=== PATIENT | female | born 1990 | race African-American/Black ===

== ENCOUNTER 2020-07-26 13:39 | Outpatient (CLI) | payer OTHER, SELFPAY ==
--- NOTE | ~2020-07-26 | US_ITS ---
EXAMINATION: US OB <= 14 weeks fetus DATE: 07/26/2020 14:10 INDICATION: Maternal carrier for viable fetus in abdominal . First trimester. TECHNIQUE: Real-time transabdominal pelvic ultrasound was performed. COMPARISON: None. FINDINGS: The uterus measures 8.6 x 6.0 x 4.1 cm. There is an intrauterine gestational sac. A yolk sac is ident ified. The crown rump length measures 7 mm, which correlates with an estimated gestational age of 6 weeks and 4 day(s) (+/-) 4 day(s). heart motion is identified measuring 141 beats per min havasupai (bpm) by M-mode Doppler. The right ovary measures 3.4 x 2.5 x 2.2 cm. The left ovary measures 4.3 x 2.3 x 2.8 cm. There is no free fluid in the pelvis. IMPRESSION: 1. Single living intrauterine gestation with estimated date of delivery of 03/17/2021. Reviewed, dictated and finalized at location B. PENDENT CONTRACTOR IMPRESSION: 1. Single living intrauterine gestation with estimated date of delivery of 03/17.
== END 2020-07-26 13:40 | disposition home or self-care (01) ==
LOC: ANHIMG 13:43
PROVIDERS: PCP Physician Assistant; Visit Provider Obstetrics & Gynecology
DX: O36.70X0 Maternal care for viable fetus in abdominal pregnancy, unspecified trimester, not applicable or unspecified (principal); Z3A.00 Weeks of gestation of pregnancy not specified
CPT/HCPCS: 76801

== ENCOUNTER 2020-12-20 16:11 | Outpatient (CLI) | payer OTHER, SELFPAY ==
[2020-12-20 16:41] LABS: Total Volume 24 Hour Urine 1550 ml
[2020-12-20 17:18] LABS: Creatinine 24 Hour Urine 1.3 gm/24 (0.8-1.8)
[2020-12-23 13:56] LABS: Total Protein Urine Random 17 mg/dL
[2020-12-23 14:09] LABS: Total Protein Urine 24 Hr 263 MG/DAY (28-141); Total Volume 24 Hour Urine 1550 ml
== END 2020-12-20 16:12 | disposition home or self-care (01) ==
PROVIDERS: PCP Physician Assistant; Visit Provider Student in an Organized Health Care Education/Training Program
DX: O13.9 Gestational [pregnancy-induced] hypertension without significant proteinuria, unspecified trimester (principal); Z3A.00 Weeks of gestation of pregnancy not specified
CPT/HCPCS: 81050; 82570; 84156

== ENCOUNTER 2020-12-23 13:54 | Outpatient (CLI) | payer OTHER, SELFPAY ==
--- NOTE | 2020-12-23 13:58 | ECG_ITS ---
Measurements Intervals [place] Rate: 100 P: 10 AR: 116 QRS: 29 QRSD: 81 T: 16 QT: 324 QTc: 418 Interpretive Statements SINUS TACHYCARDIA WITH SHORT AR INTERVAL BORDERLINE ECG Electronically Signed On 12-23-2020 14:19:55 CDT by Hemant Alvarado D.O.
--- NOTE | 2020-12-28 16:25 | WPDHOLTEREM ---
Holter/Event Monitor Holter/Event Monitor Date of procedure: 12/23/20 Procedure Type: 24 hour holter monitor Indications: Tachycardia Conclusion: 1. 24 hour holter monitor on 12/23/20. 2. Underlying rhythm is sinus rhythm. HR range 62-158 bpm; average HR 96 bpm. HR at 158 bpm was at 21:03. 3. There are 3 premature supraventricular complexes. No supraventricular tachycardia. 4. There is one premature ventricular complex. No ventricular tachycardia. 5. No sinoatrial or atrioventricular blocks. No significant pauses greater than 2 seconds. 6. No symptoms available for correlation.
== END 2020-12-23 13:55 | disposition home or self-care (01) ==
LOC: ANHCARD 13:57
PROVIDERS: PCP Physician Assistant; Visit Provider Obstetrics & Gynecology
DX: O99.43 Diseases of the circulatory system complicating the puerperium (principal); Z3A.28 28 weeks gestation of pregnancy
CPT/HCPCS: 93005; 93225; 93226

== ENCOUNTER 2020-12-29 13:14 | Outpatient (CLI) | payer OTHER, SELFPAY ==
--- NOTE | ~2020-12-29 | US_ITS ---
EXAMINATION: US OB limited DATE: 12/29/2020 14:34 INDICATION: Hypertension during third trimester TECHNIQUE: Real-time ultrasound of the pelvis was performed. The interpreting radiologist was not pre sent for the study. COMPARISON: 07/26/2020 FINDINGS: There is a single living fetus in vertex presentation. The placenta is anterior. card iac activity and movement are noted. heart rate is 145 beats per minute (bpm). The amniot ic fluid index is 13.1 cm which is normal. IMPRESSION: 1. Single living fetus in vertex presentation. 2. Normal amniotic fluid index. Reviewed, dictated and finalized at location B.
[2020-12-29 13:55] VITALS: BP 132/85; PULSE 94
[2020-12-29 14:01] VITALS: BP 138/89; PULSE 98
[2020-12-29 14:01] LABS: Basophils Percent Auto 0.2 % (0.2-1.2); Eosinophils Absolute Auto 0.1 K/mm3 (0-0.3); Eosinophils Percent Auto 1.1 % (0-4.4); Hematocrit 33.9 % (37.0-47.0); Hemoglobin 11.4 g/dL (12.0-15.0); Immature Granulocyte Absolute 0.07 K/mm3 (0.00-0.031); Immature Granulocyte Percent A 0.7 % (0-0.5); Lymphocytes Absolute Auto 2.44 K/mm3 (0.9-3.2); Lymphocytes Percent Auto 23.4 % (18.3-44.2); Mean Corpuscular HGB Conc 33.6 g/dl (32-36); Mean Corpuscular Hemoglobin 29.3 pg (26-34); Mean Corpuscular Volume 87.1 fl (80-100); Mean Platelet Volume 8.7 fl (7.4-10.4); Monocytes Absolute Auto 0.6 K/mm3 (0.1-0.6); Monocytes Percent Auto 5.7 % (2.6-8.5); Neutrophils Absolute Auto 7.2 K/mm3 (1.3-6.7); Neutrophils Percent Auto 68.9 % (45.5-73.1); Platelet Count Result 389 k/mm3 (150-375); Red Blood Count 3.89 M/mm3 (4.2-5.4); Red Cell Distribution Width 12.4 % (11.5-14.5); White Blood Count 10.4 K/mm3 (4.5-10.0)
[2020-12-29 14:04] LABS: Add Urine Microscopic? YES; Appearance Urine Cloudy (Clear); Bacteria Urine Trace /hpf; Bilirubin Urine Negative (Negative); Blood Urine Negative (Negative); Color Urine Yellow (Yellow); Glucose Urine UA Negative (Negative); Ketones Urine Negative (Negative); Leukocyte Esterase Ur Trace LEU/UL (NEGATIVE); Mucus Urine Rare /lpf; Nitrate Urine Negative (Negative); Protein Urine 1+ mg/dL (Negative); Specific Grav Ur 1.018 (1.001-1.035); Squamous Epithelial Cell Urine Few /hpf (Few); WBC Urine 0-3 /hpf (0-3)
[2020-12-29 14:18] LABS: Alanine Aminotransferase 16 U/L (4-35); Albumin Level 3.7 g/dL (3.5-5.1); Alkaline Phosphatase 61 U/L (38-126); Anion Gap 6 mmol/L (8-16); Aspartate Amino Transferase 26 U/L (14-36); Bilirubin,Total 0.2 mg/dL (0.2-1.3); Blood Urea Nitrogen 3 mg/dL (7-17); Calcium 8.9 mg/dL (8.4-10.2); Carbon Dioxide 27 mmol/L (22-30); Chloride 104 mmol/L (98-107); Estimated Glomerular Filt Rate > 60; Glucose 102 mg/dL (65-105); Potassium 3.8 mmol/L (3.4-5.0); Sodium 137 mmol/L (137-145); Uric Acid 4.3 mg/dL (2.5-7.5)
[2020-12-29 14:22] LABS: Creatinine Urine 159.1 mg/dL; Total Protein Urine Random 10 mg/dL; Ur Ttl Prot Creatinine Ratio 0.06 mg/mg (0-0.20)
[2020-12-29 14:47] VITALS: BP 132/85; PULSE 94
== END 2020-12-29 14:30 | disposition home or self-care (01) ==
LOC: ANHOBOP 13:21 → ANHLDR 13:23
PROVIDERS: PCP Physician Assistant; Visit Provider Obstetrics & Gynecology
DX: O13.3 Gestational [pregnancy-induced] hypertension without significant proteinuria, third trimester (principal); Z3A.30 30 weeks gestation of pregnancy
CPT/HCPCS: 36415; 59025; 76815; 80053; 81001; 82570; 84156; 84550; 85025; 87086; 99199

== ENCOUNTER 2021-01-06 13:08 | Outpatient (CLI) | payer OTHER, SELFPAY ==
[2021-01-06 13:42] VITALS: BP 149/95; PULSE 105
[2021-01-06 13:53] LABS: Basophils Percent Auto 0.2 % (0.2-1.2); Eosinophils Absolute Auto 0.1 K/mm3 (0-0.3); Eosinophils Percent Auto 0.9 % (0-4.4); Hematocrit 33.2 % (37.0-47.0); Hemoglobin 10.9 g/dL (12.0-15.0); Immature Granulocyte Absolute 0.04 K/mm3 (0.00-0.031); Immature Granulocyte Percent A 0.5 % (0-0.5); Lymphocytes Absolute Auto 2.03 K/mm3 (0.9-3.2); Lymphocytes Percent Auto 23.9 % (18.3-44.2); Mean Corpuscular HGB Conc 32.8 g/dl (32-36); Mean Corpuscular Hemoglobin 28.8 pg (26-34); Mean Corpuscular Volume 87.6 fl (80-100); Mean Platelet Volume 8.7 fl (7.4-10.4); Monocytes Absolute Auto 0.4 K/mm3 (0.1-0.6); Monocytes Percent Auto 4.8 % (2.6-8.5); Neutrophils Absolute Auto 5.9 K/mm3 (1.3-6.7); Neutrophils Percent Auto 69.7 % (45.5-73.1); Platelet Count Result 364 k/mm3 (150-375); Red Blood Count 3.79 M/mm3 (4.2-5.4); Red Cell Distribution Width 12.3 % (11.5-14.5); White Blood Count 8.5 K/mm3 (4.5-10.0)
[2021-01-06 13:59] LABS: Alanine Aminotransferase 18 U/L (4-35); Albumin Level 3.5 g/dL (3.5-5.1); Alkaline Phosphatase 62 U/L (38-126); Anion Gap 5 mmol/L (8-16); Aspartate Amino Transferase 36 U/L (14-36); Bilirubin,Total 0.3 mg/dL (0.2-1.3); Blood Urea Nitrogen 3 mg/dL (7-17); Calcium 8.3 mg/dL (8.4-10.2); Carbon Dioxide 27 mmol/L (22-30); Chloride 105 mmol/L (98-107); Estimated Glomerular Filt Rate > 60; Glucose 123 mg/dL (65-105); Potassium 3.5 mmol/L (3.4-5.0); Sodium 137 mmol/L (137-145); Uric Acid 4.8 mg/dL (2.5-7.5)
[2021-01-06 14:00] VITALS: BP 145/82; PULSE 97
[2021-01-06 14:15] VITALS: BP 144/89; PULSE 99
[2021-01-06 14:30] VITALS: BP 130/71; PULSE 98
[2021-01-06 14:37] LABS: Add Urine Microscopic? YES; Amorphous Sediment Urine Few; Appearance Urine Cloudy (Clear); Bacteria Urine Trace /hpf; Bilirubin Urine Negative (Negative); Blood Urine Negative (Negative); Color Urine Yellow (Yellow); Glucose Urine UA 1+ mg/dL (Negative); Ketones Urine 1+ mg/dL (Negative); Leukocyte Esterase Ur Trace LEU/UL (NEGATIVE); Mucus Urine Few /lpf; Nitrate Urine Negative (Negative); Protein Urine 2+ mg/dL (Negative); Squamous Epithelial Cell Urine Moderate /hpf (Few); Urobilinogen Urine Negative mg/dL (<2.0)
[2021-01-06 14:45] VITALS: BP 132/78; PULSE 97
[2021-01-06 14:53] LABS: Creatinine Urine 229.5 mg/dL; Total Protein Urine Random 15 mg/dL; Ur Ttl Prot Creatinine Ratio 0.07 mg/mg (0-0.20)
[2021-01-06 15:00] VITALS: BP 134/83; PULSE 95
== END 2021-01-06 15:10 | disposition home or self-care (01) ==
LOC: ANHOBOP 13:12 → ANHOBPP 13:13
PROVIDERS: PCP Physician Assistant; Visit Provider Obstetrics & Gynecology
DX: O13.9 Gestational [pregnancy-induced] hypertension without significant proteinuria, unspecified trimester (principal); Z3A.00 Weeks of gestation of pregnancy not specified
CPT/HCPCS: 36415; 59025; 80053; 81001; 82570; 84156; 84550; 85025; 87086; 99199

== ENCOUNTER 2021-01-07 19:00 | Outpatient (NON) | payer OTHER, SELFPAY ==
[2021-01-08 16:23] VITALS: BMI 34.0
[2021-01-08 16:34] LABS: Total Volume 24 Hour Urine 2200 ml
[2021-01-08 16:40] LABS: Total Protein Urine 24 Hr 264 mg/24hr (28-141); Total Protein Urine Random 12 mg/dL
[2021-01-08 16:41] LABS: Creatinine 24 Hour Urine 1.5 gm/24 (0.8-1.8); Creatinine Urine 72.1 mg/dL
== END 2021-01-07 19:01 | disposition home or self-care (01) ==
PROVIDERS: PCP Physician Assistant; Visit Provider Obstetrics & Gynecology
DX: Z34.90 Encounter for supervision of normal pregnancy, unspecified, unspecified trimester (principal); Z3A.00 Weeks of gestation of pregnancy not specified
CPT/HCPCS: 81050; 82570; 84156

== ENCOUNTER 2021-01-13 12:10 | Outpatient (CLI) | payer OTHER, SELFPAY ==
[2021-01-13] VITALS (7 sets, daily range): BP systolic 128–149; BP diastolic 76–92; PULSE 88–96
--- NOTE | ~2021-01-13 | US_ITS ---
US OB limited 01/13/2021 13:32 Indication: Hypertension Procedure: Real-time Limited obstetrical ultrasound using transabdominal technique Comparison: 12/29/2020 Findings: There is a single living intrauterine in vertex presentation. Placenta is anterio r without previa. Amniotic fluid index is normal measuring 11 cm, (normal range for gestational age i s 8.6-24.2 cm). heart rate is 136 BPM. Impression: 1: Single living intrauterine in vertex presentation. 2: Normal DAVE measures 11 cm. Reviewed, dictated and finalized at location B. Impression: 1: Single living intrauterine in vertex presentation. 2: Normal DAVE measures 11 cm.
[2021-01-13 12:47] LABS: Basophils Percent Auto 0.3 % (0.2-1.2); Eosinophils Absolute Auto 0.1 K/mm3 (0-0.3); Hemoglobin 10.8 g/dL (12.0-15.0); Immature Granulocyte Absolute 0.07 K/mm3 (0.00-0.031); Immature Granulocyte Percent A 0.8 % (0-0.5); Lymphocytes Absolute Auto 1.95 K/mm3 (0.9-3.2); Lymphocytes Percent Auto 22.3 % (18.3-44.2); Mean Corpuscular HGB Conc 33.8 g/dl (32-36); Mean Corpuscular Hemoglobin 29.3 pg (26-34); Mean Corpuscular Volume 86.7 fl (80-100); Mean Platelet Volume 8.6 fl (7.4-10.4); Monocytes Absolute Auto 0.5 K/mm3 (0.1-0.6); Monocytes Percent Auto 6.1 % (2.6-8.5); Neutrophils Absolute Auto 6.1 K/mm3 (1.3-6.7); Neutrophils Percent Auto 69.5 % (45.5-73.1); Platelet Count Result 312 k/mm3 (150-375); Red Blood Count 3.69 M/mm3 (4.2-5.4); Red Cell Distribution Width 12.4 % (11.5-14.5); White Blood Count 8.7 K/mm3 (4.5-10.0)
[2021-01-13 12:51] LABS: Add Urine Microscopic? YES; Appearance Urine Cloudy (Clear); Bacteria Urine Trace /hpf; Bilirubin Urine Negative (Negative); Blood Urine Negative (Negative); Color Urine Yellow (Yellow); Glucose Urine UA Negative (Negative); Ketones Urine 1+ mg/dL (Negative); Leukocyte Esterase Ur 1+ LEU/UL (NEGATIVE); Mucus Urine Rare /lpf; Nitrate Urine Negative (Negative); Protein Urine 1+ mg/dL (Negative); Specific Grav Ur 1.014 (1.001-1.035); Squamous Epithelial Cell Urine Few /hpf (Few); Urobilinogen Urine Negative mg/dL (<2.0)
[2021-01-13 12:55] LABS: Creatinine Urine 125.2 mg/dL; Total Protein Urine Random 15 mg/dL; Ur Ttl Prot Creatinine Ratio 0.12 mg/mg (0-0.20)
[2021-01-13 12:58] LABS: Alanine Aminotransferase 14 U/L (4-35); Albumin Level 3.6 g/dL (3.5-5.1); Alkaline Phosphatase 66 U/L (38-126); Anion Gap 6 mmol/L (8-16); Aspartate Amino Transferase 24 U/L (14-36); Bilirubin,Total 0.2 mg/dL (0.2-1.3); Blood Urea Nitrogen 3 mg/dL (7-17); Calcium 8.7 mg/dL (8.4-10.2); Carbon Dioxide 26 mmol/L (22-30); Chloride 104 mmol/L (98-107); Estimated Glomerular Filt Rate > 60; Glucose 110 mg/dL (65-105); Potassium 3.6 mmol/L (3.4-5.0); Sodium 136 mmol/L (137-145); Uric Acid 4.7 mg/dL (2.5-7.5)
== END 2021-01-13 14:15 | disposition home or self-care (01) ==
LOC: ANHOBOP 12:16 → ANHOBPP 12:16
PROVIDERS: PCP Physician Assistant; Visit Provider Obstetrics & Gynecology
DX: O13.9 Gestational [pregnancy-induced] hypertension without significant proteinuria, unspecified trimester (principal); Z3A.00 Weeks of gestation of pregnancy not specified
CPT/HCPCS: 36415; 59025; 76815; 80053; 81001; 82570; 84156; 84550; 85025; 87086; 99199

== ENCOUNTER 2021-01-24 14:29 | Outpatient (CLI) | payer OTHER, SELFPAY ==
[2021-01-24] VITALS (25 sets, daily range): BP systolic 130–163; BP diastolic 74–102; PULSE 91–109; BMI 34.9
[2021-01-24] MEDS: BETAMETHASONE SOD PHOS/ACETATE 30 MG/5 ML VIAL 12 MG IM (15:19)
[2021-01-24 15:22] LABS: Basophils Percent Auto 0.2 % (0.2-1.2); Eosinophils Absolute Auto 0.1 K/mm3 (0-0.3); Eosinophils Percent Auto 1.1 % (0-4.4); Hematocrit 31.1 % (37.0-47.0); Hemoglobin 10.3 g/dL (12.0-15.0); Immature Granulocyte Absolute 0.09 K/mm3 (0.00-0.031); Immature Granulocyte Percent A 0.9 % (0-0.5); Lymphocytes Absolute Auto 2.16 K/mm3 (0.9-3.2); Lymphocytes Percent Auto 21.3 % (18.3-44.2); Mean Corpuscular HGB Conc 33.1 g/dl (32-36); Mean Corpuscular Hemoglobin 28.5 pg (26-34); Mean Corpuscular Volume 86.1 fl (80-100); Mean Platelet Volume 8.8 fl (7.4-10.4); Monocytes Absolute Auto 0.7 K/mm3 (0.1-0.6); Neutrophils Absolute Auto 7.1 K/mm3 (1.3-6.7); Neutrophils Percent Auto 69.5 % (45.5-73.1); Nucleated Red Blood Cells Perc 0.2 % (0.0-0.2); Platelet Count Result 333 k/mm3 (150-375); Red Blood Count 3.61 M/mm3 (4.2-5.4); Red Cell Distribution Width 12.5 % (11.5-14.5); White Blood Count 10.1 K/mm3 (4.5-10.0)
[2021-01-24 15:32] LABS: Alanine Aminotransferase 13 U/L (4-35); Albumin Level 3.5 g/dL (3.5-5.1); Alkaline Phosphatase 66 U/L (38-126); Anion Gap 5 mmol/L (8-16); Aspartate Amino Transferase 24 U/L (14-36); Bilirubin,Total 0.2 mg/dL (0.2-1.3); Carbon Dioxide 25 mmol/L (22-30); Chloride 104 mmol/L (98-107); Estimated Glomerular Filt Rate > 60; Glucose 102 mg/dL (65-105); Potassium 3.5 mmol/L (3.4-5.0); Sodium 134 mmol/L (137-145); Uric Acid 4.9 mg/dL (2.5-7.5)
[2021-01-24 15:58] LABS: Add Urine Microscopic? YES; Appearance Urine Cloudy (Clear); Bacteria Urine Trace /hpf; Bilirubin Urine Negative (Negative); Blood Urine Negative (Negative); Color Urine Yellow (Yellow); Glucose Urine UA Negative (Negative); Ketones Urine Negative (Negative); Leukocyte Esterase Ur 1+ LEU/UL (NEGATIVE); Mucus Urine Rare /lpf; Nitrate Urine Negative (Negative); Protein Urine 1+ mg/dL (Negative); Specific Grav Ur 1.019 (1.001-1.035); Squamous Epithelial Cell Urine Few /hpf (Few); Urobilinogen Urine Negative mg/dL (<2.0)
[2021-01-24 15:58] LABS: Blood Urea Nitrogen < 2 mg/dL (7-17)
--- NOTE | 2021-01-24 15:59 | PC.NURSE ---
1555--Dr. Barnett on unit, reviewed labs and BP's. Orders received for procardia 30mg XL po Q24hrs.
[2021-01-24] MEDS: NIFEdipine 30 MG TAB.ER.24 PO (16:10)
[2021-01-24 16:34] LABS: Creatinine Urine 162.4 mg/dL; Total Protein Urine Random 14 mg/dL; Ur Ttl Prot Creatinine Ratio 0.09 mg/mg (0-0.20)
--- NOTE | 2021-01-24 20:02 | LDADM ---
This patient, Fabrice Burns, was admitted to OB Post 117 on at 14:29. Plans for labor, pain management and were discussed with patient. Patient/family oriented to hospital policies and general routines including ID bracelet, bed and alarms, visiting hours, pain management, procedures, bathroom and other care routines, personal items, smoking policy, room service/diet and guest tray routines, security routines, and visiting hours. Patient/Family are encouraged to report perceived risks to care and to ask questions if they do not understand what they are told or what they should do. See OBIX for further documentation.
== END 2021-01-24 20:24 | disposition home or self-care (01) ==
LOC: ANHOBOP 14:53 → ANHOBPP 14:54
PROVIDERS: PCP Physician Assistant; Visit Provider Obstetrics & Gynecology
DX: O13.9 Gestational [pregnancy-induced] hypertension without significant proteinuria, unspecified trimester (principal); Z3A.00 Weeks of gestation of pregnancy not specified
CPT/HCPCS: 36415; 80053; 81001; 82570; 84156; 84550; 85025; 87077; 87086; 87088; 96372; 99199; A9270; J0702

== ENCOUNTER 2021-01-25 16:44 | Outpatient (CLI) | payer OTHER, SELFPAY ==
[2021-01-25 16:51] VITALS: BMI 34.9
[2021-01-25] MEDS: BETAMETHASONE SOD PHOS/ACETATE 30 MG/5 ML VIAL 12 MG IM (16:54)
[2021-01-25 18:05] LABS: Collection Time Urine 24 HOURS; Total Volume 24 Hour Urine 4000 ml
[2021-01-25 18:06] LABS: Patient Weight 197 Lbs
[2021-01-25 18:41] LABS: Specific Gravity Ur 1.015
[2021-01-25 18:50] LABS: Creatinine Clearance Urine 179.7 ml/min (75-125); Creatinine Urine 35.8 mg/dL; Total Protein Urine 24 Hr 280 mg/24hr (28-141); Total Protein Urine Random 7 mg/dL
== END 2021-01-25 16:45 | disposition home or self-care (01) ==
LOC: ANHOBOP 16:48
PROVIDERS: PCP Physician Assistant; Visit Provider Obstetrics & Gynecology
DX: Z34.90 Encounter for supervision of normal pregnancy, unspecified, unspecified trimester (principal); Z3A.00 Weeks of gestation of pregnancy not specified
CPT/HCPCS: 81050; 82575; 84156; 96372; J0702

== ENCOUNTER 2021-01-31 13:44 | Outpatient (CLI) | payer OTHER, SELFPAY ==
[2021-01-31] VITALS (7 sets, daily range): BP systolic 126–155; BP diastolic 73–91; PULSE 93–107
[2021-01-31 14:19] LABS: Basophils Percent Auto 0.2 % (0.2-1.2); Eosinophils Absolute Auto 0.1 K/mm3 (0-0.3); Eosinophils Percent Auto 1.2 % (0-4.4); Hematocrit 32.4 % (37.0-47.0); Hemoglobin 10.7 g/dL (12.0-15.0); Immature Granulocyte Absolute 0.11 K/mm3 (0.00-0.031); Lymphocytes Absolute Auto 2.65 K/mm3 (0.9-3.2); Lymphocytes Percent Auto 23.8 % (18.3-44.2); Mean Corpuscular Hemoglobin 28.4 pg (26-34); Mean Corpuscular Volume 85.9 fl (80-100); Mean Platelet Volume 8.8 fl (7.4-10.4); Monocytes Absolute Auto 0.8 K/mm3 (0.1-0.6); Monocytes Percent Auto 7.4 % (2.6-8.5); Neutrophils Absolute Auto 7.4 K/mm3 (1.3-6.7); Neutrophils Percent Auto 66.4 % (45.5-73.1); Platelet Count Result 354 k/mm3 (150-375); Red Blood Count 3.77 M/mm3 (4.2-5.4); Red Cell Distribution Width 12.7 % (11.5-14.5); White Blood Count 11.1 K/mm3 (4.5-10.0)
[2021-01-31 14:36] LABS: Potassium 3.6 mmol/L (3.4-5.0)
[2021-01-31 14:39] LABS: Alanine Aminotransferase 14 U/L (4-35); Albumin Level 3.6 g/dL (3.5-5.1); Alkaline Phosphatase 71 U/L (38-126); Anion Gap 7 mmol/L (8-16); Aspartate Amino Transferase 25 U/L (14-36); Bilirubin,Total 0.1 mg/dL (0.2-1.3); Blood Urea Nitrogen 5 mg/dL (7-17); Calcium 9.3 mg/dL (8.4-10.2); Carbon Dioxide 24 mmol/L (22-30); Chloride 104 mmol/L (98-107); Estimated Glomerular Filt Rate > 60; Glucose 119 mg/dL (65-105); Sodium 135 mmol/L (137-145); Uric Acid 5.1 mg/dL (2.5-7.5)
--- NOTE | 2021-01-31 15:00 | PC.NURSE ---
Called Dr. Barnett with labs and BPs. Informed of reactive tracing. Continue to monitor and call back.
--- NOTE | 2021-01-31 15:31 | PC.NURSE ---
Called with additional BPs. Tracing reactive. January D/C home.
== END 2021-01-31 15:35 | disposition home or self-care (01) ==
LOC: ANHOBOP 13:47 → ANHOBPP 13:51
PROVIDERS: PCP Physician Assistant; Visit Provider Obstetrics & Gynecology
DX: O13.9 Gestational [pregnancy-induced] hypertension without significant proteinuria, unspecified trimester (principal); Z3A.00 Weeks of gestation of pregnancy not specified
CPT/HCPCS: 36415; 59025; 80053; 84550; 85025; 99199

== ENCOUNTER 2021-02-03 15:40 | Observation (INO) | payer OTHER, SELFPAY ==
[2021-02-03] VITALS (11 sets, daily range): BP systolic 140–157; BP diastolic 83–112; PULSE 99–112; TEMP 36.7–37.2; BMI 34.9
--- NOTE | ~2021-02-03 | US_ITS ---
EXAMINATION: 1. US OB limited w BPP 2. US umbilical doppler DATE: 02/04/2021 07:33 INDICATION: Gestational hypertension. TECHNIQUE: Real-time pelvic ultrasound was performed. COMPARISON: Ultrasound 02/03/2021 FINDINGS: There is a single living fetus in vertex presentation. The placenta is anterior. heart rate is 145 beats per minute (bpm). The amniotic fluid index is 9.2 cm, which is normal. Biophysical profile performed by the technologist: breathing (30 sec sustained breathing in 30 minutes): 2 out of 2 movement (3 gross body movements in 30 minutes): 2 out of 2 tone (one episode of ydzkzvu-crpgfbnkx-deoteql limb movement): 2 out of 2 Amniotic fluid pocket (2 cm): 2 out of 2 Total score: 8 out of 8 Umbilical artery pulsed Doppler demonstrates a peak systolic to end-diastolic velocity ratio (S/D rat io) of 2.0 (5th percentile = 2.0, 95th percentile = 3.4). IMPRESSION: 1. Single living fetus in vertex presentation. 2. Biophysical profile 8 out of 8. 3. Normal umbilical artery Doppler. Reviewed, dictated and finalized at location A. IMPRESSION: 1. Single living fetus in vertex presentation. 2. Biophysical profile 8 out of 8. 3. Normal umbilical artery Doppler.
--- NOTE | ~2021-02-03 | US_ITS ---
EXAMINATION: US OB BPP wo non-stress DATE: 02/03/2021 17:44 INDICATION: Abnormal biophysical profile in position office, third trimester TECHNIQUE: Real-time pelvic ultrasound was performed. The interpreting radiologist was not present fo r the study. COMPARISON: 01/13/2021 FINDINGS: There is a single living fetus in vertex presentation. The placenta is anterior. heart rate is 149 beats per minute (bpm). Biophysical profile performed by the technologist: breathing (30 sec sustained breathing in 30 minutes): 2 out of 2 movement (3 gross body movements in 30 minutes): 2 out of 2 tone (one episode of ntksnoc-cpgjhnddr-wptwjsg limb movement): 2 out of 2 Amniotic fluid pocket (2 cm): 2 out of 2 Total score: 8 out of 8 IMPRESSION: 1. Single living fetus in vertex presentation. 2. Biophysical profile 8 out of 8. Reviewed, dictated and finalized at location A.
--- NOTE | 2021-02-03 16:39 | OBADM ---
This patient, Fabrice Burns, admitted to the OB room OB Post 116 for observation. Patient/family oriented to hospital policies and general routines including ID bracelet, bed and alarms, visiting hours, pain management, procedures, bathroom and other care routines, personal items, smoking policy, room service/diet, and visiting hours. Patient/Family are encouraged to report perceived risks to care and to ask questions if they do not understand what they are told or what they should do.
[2021-02-03] MEDS: ACETAMINOPHEN 500 MG TABLET 1000 MG PO (17:13)
[2021-02-03 17:17] LABS: Basophils Percent Auto 0.4 % (0.2-1.2); Eosinophils Absolute Auto 0.1 K/mm3 (0-0.3); Hematocrit 33.7 % (37.0-47.0); Hemoglobin 10.8 g/dL (12.0-15.0); Immature Granulocyte Absolute 0.09 K/mm3 (0.00-0.031); Immature Granulocyte Percent A 0.8 % (0-0.5); Lymphocytes Absolute Auto 2.57 K/mm3 (0.9-3.2); Lymphocytes Percent Auto 22.6 % (18.3-44.2); Mean Corpuscular Hemoglobin 27.5 pg (26-34); Mean Corpuscular Volume 85.8 fl (80-100); Mean Platelet Volume 9.1 fl (7.4-10.4); Monocytes Absolute Auto 0.9 K/mm3 (0.1-0.6); Monocytes Percent Auto 7.7 % (2.6-8.5); Neutrophils Absolute Auto 7.7 K/mm3 (1.3-6.7); Neutrophils Percent Auto 67.5 % (45.5-73.1); Platelet Count Result 368 k/mm3 (150-375); Red Blood Count 3.93 M/mm3 (4.2-5.4); Red Cell Distribution Width 12.6 % (11.5-14.5); White Blood Count 11.4 K/mm3 (4.5-10.0)
[2021-02-03 17:21] LABS: Add Urine Microscopic? YES; Amorphous Sediment Urine Few; Appearance Urine Cloudy (Clear); Bacteria Urine 1+ /hpf; Bilirubin Urine Negative (Negative); Blood Urine Negative (Negative); Color Urine Yellow (Yellow); Glucose Urine UA Negative (Negative); Ketones Urine Trace mg/dL (Negative); Leukocyte Esterase Ur 1+ LEU/UL (Negative); Mucus Urine Rare /lpf; Nitrate Urine Negative (Negative); Protein Urine Negative (Negative); Squamous Epithelial Cell Urine Occasional /hpf (Few); Urobilinogen Urine Negative mg/dL (<2.0); WBC Urine 0-3 /hpf
[2021-02-03 17:28] LABS: Alanine Aminotransferase 12 U/L (4-35); Albumin Level 3.7 g/dL (3.5-5.1); Alkaline Phosphatase 82 U/L (38-126); Anion Gap 5 mmol/L (8-16); Aspartate Amino Transferase 22 U/L (14-36); Bilirubin,Total 0.3 mg/dL (0.2-1.3); Blood Urea Nitrogen 3 mg/dL (7-17); Calcium 9.4 mg/dL (8.4-10.2); Carbon Dioxide 26 mmol/L (22-30); Chloride 105 mmol/L (98-107); Estimated CRCL calculation 150 ml/min; Estimated Glomerular Filt Rate > 60; Glucose 94 mg/dL (65-105); Sodium 136 mmol/L (137-145); Uric Acid 4.8 mg/dL (2.5-7.5)
[2021-02-03] MEDS: ZOLPIDEM TARTRATE (*CRX) 5 MG TABLET PO (19:21)
--- NOTE | 2021-02-03 19:22 | PC.NURSE ---
Dr. Barnett notified of pt latest pressure and pt complaints of headache. Dr. Barnett wants to be notified if pt blood pressures start creeping up or if headache/migraine does not go away. No other new orders at this time.
--- NOTE | 2021-02-03 19:22 | PC.NURSE ---
Dr. Barnett phoned in for pt status. Orders received for Amoxil 250 Q8 PO for noted Group B Strep in urine culture.
[2021-02-03] MEDS: AMOXICILLIN 250 MG CAP PO (22:22)
[2021-02-03] MEDS: NIFEdipine 30 MG TAB.ER.24 PO (22:22)
--- NOTE | 2021-02-03 22:22 | PC.NURSE ---
pt states she feels much better. Upon entering room pt playing a game on her phone. When RN left room pt sitting up to eat a snack.
--- NOTE | 2021-02-03 23:05 | PC.NURSE ---
pt sitting up in bed watching TV with significant other. Pt states pain is maybe a 2/10. RN encourage pt to try and sleep and notify RN when she gets up to bathroom next for BP check. Pt agrees and has no other concerns at this time.
[2021-02-04 01:33] VITALS: BP 113/71; PULSE 97
[2021-02-04 05:25] VITALS: BP 135/90; PULSE 103
[2021-02-04] MEDS: AMOXICILLIN 250 MG CAP PO (06:46)
[2021-02-04 07:49] VITALS: TEMP 36.6
[2021-02-04 07:50] VITALS: BP 148/96; PULSE 108
[2021-02-04 08:39] VITALS: BP 140/89; PULSE 100
--- NOTE | 2021-02-04 08:40 | PM.OBPNVD ---
OB - PN: Subj Subjective Date/time seen: 02/04/21 08:40 Patient seen at bedside this AM. Reports feeling better than yesterday. Headache improved with Fioricet, currently resolved. Denies any chest pain, SOB, visual disturbances, or abdominal pain. Denies any vaginal bleeding, leakage of fluid, or contractions. Currently reports good movement. OB - PN: Obj Data Labs CBC & Chem 7: 02/03/21 17:00 02/03/21 17:00 Labs: Laboratory Results - last 24 hr 02/03/21 02/03/21 02/03/21 17:00 17:00 17:00 WBC 11.4 H RBC 3.93 L Hgb 10.8 L Hct 33.7 L MCV 85.8 MCH 27.5 MCHC 32.0 RDW 12.6 Plt Count 368 MPV 9.1 Immature Gran % (Auto) 0.8 H Neut % (Auto) 67.5 Lymph % (Auto) 22.6 [place] % (Auto) 7.7 Eos % (Auto) 1.0 Baso % (Auto) 0.4 Lymph # (Auto) 2.57 [place] # (Auto) 0.9 H Eos # (Auto) 0.1 Baso # (Auto) 0.0 Abs Immat Gran (auto) 0.09 H Absolute Neuts (auto) 7.7 H Absolute Nucleated RBC 0.0 Nucleated RBC % 0.0 Sodium 136 L Potassium 4.0 Chloride 105 Carbon Dioxide 26 Anion Gap 5 L BUN 3 L Creatinine 0.50 L Estim Creat Clear Calc 150 Estimated GFR > 60 Glucose 94 Uric Acid 4.8 Calcium 9.4 Total Bilirubin 0.3 AST 22 ALT 12 Alkaline Phosphatase 82 Total Protein 7.0 Albumin 3.7 Urine Color Yellow Urine Appearance Cloudy H Urine pH 7.0 Ur Specific [place] 1.010 Urine Protein Negative Urine Glucose (UA) Negative Urine Ketones Trace Ur Blood (Man) Negative Urine Nitrate Negative Urine Bilirubin Negative Urine Urobilinogen Negative Leukocyte Esterase Rfl 1+ H Urine RBC 3-5 H Urine WBC 0-3 Ur Squamous Epith Cells Occasional Amorphous Sediment Few H Urine Bacteria 1+ H Hyaline Casts 1-2 Urine Mucus Rare Imaging Radiologist's impression: Impressions Obstetrics US/Biophysical Profile 02/03/21 17:55 IMPRESSION: 1. Single living fetus in vertex presentation. 2. Biophysical profile 8 out of 8. Doppler Study 02/04/21 07:37 IMPRESSION: 1. Single living fetus in vertex presentation. 2. Biophysical profile 8 out of 8. 3. Normal umbilical artery Doppler. Obstetrics US/Biophysical Profile 02/04/21 07:37 IMPRESSION: 1. Single living fetus in vertex presentation. 2. Biophysical profile 8 out of 8. 3. Normal umbilical artery Doppler. OB - PN A/P Assessment and Plan (1) Gestational hypertension: Code(s): O13.9 - Gestational [-induced] hypertension without significant proteinuria, unspecified trimester Status: Acute Assessment and Plan: pt with GHTN labs WNL yesterday 24 hr urine collection in process (2) Non-reactive NST (non-stress test): Code(s): O28.8 - Other abnormal findings on screening of mother Status: Acute Assessment and Plan: pt with nonreactive NST yesterday at [facility] BPP 6/8 and DAVE 6.3 pt was observed on L&D overnight, uneventful repeat BPP this AM 88 and DAVE 9 NST reactive plan is to discharge home in stable condition strict emergency precautions reviewed pt has appt at [facility] on 02/07 all questions and concerns addressed Time Spent With Patient Time: Total time spent is greater than 50% in coordination of care (as documented) at patient's floor/unit and/or counseling patient:
--- NOTE | 2021-02-04 08:50 | PC.NURSE ---
Dr. Vazquez at bedside to assess pt and discuss plan of care.
--- NOTE | 2021-02-04 13:15 | PM.IMHP ---
H&P: HPI History of Present Illness Date/Time: 02/03/21 1500 Patient is a 30 y/o at 35 2 with PNC significant for gestational hypertension. She has been getting twice weekly surveillance. At testing at [facility] BPP was 6/10, NR NST and no gross movements. DAVE was reported as 6.3. She was recommended to be admitted for observation at [facility]. She was seen for her routine OB visit today. She has had mild headache. BP 140/90s at home. She is on Procardia 30mgXL daily. Chief Complaint: Nonreactive NST. Review of Systems Review of Systems: All systems reviewed & are unremarkable except as noted in HPI and below Constitutional: Constitutional: Reports no additional constitutional complaints and Denies headache(s) Eyes: Eyes: Denies spots in vision ENT: Reports system reviewed and no additional complaints, except as documented and Denies headache(s) Cardiovascular: Cardiovascular: Denies chest pain and Denies dyspnea Respiratory: Respiratory: Denies dyspnea Gastrointestinal: Gastrointestinal: Reports no additional gastrointestinal complaints Genitourinary: Genitourinary: Reports amenorrhea Musculoskeletal: Musculoskeletal: Reports no additional musculoskeletal complaints Integumentary/Breasts: Skin/Breast: Denies breast mass and Denies rash Neurologic: Denies headache(s) Psychiatric: Psychiatric: Reports no additional psychiatric complaints [facility] Past Medical History Medical History Anxiety Asthma as a child History of pre-eclampsia History of vaginal delivery x1 Mild acid reflux Surgical History Surgical History [place] teeth removed Family History Family History Grandparent Diabetes mellitus Hypertension Cerebrovascular accident Father Hypertension Social History Social History Smoking status: Never smoker Alcohol intake: former Substance use: never Meds Home Medications and Allergies Home Medications Medication Instructions Recorded Confirmed Type cetirizine 10 mg capsule 10 mg PO DAILY 07/06/20 02/03/21 History PNV 153-FA 400 mcg-om3 35 mg-dha 1 tablet PO DAILY 07/26/20 02/03/21 History 25 mg-epa 5 mg-fish oil chew tablet nifedipine 30 mg tablet,extended 30 mg PO DAILY #30 tablet 01/24/21 02/03/21 Rx release 24 hr amoxicillin 250 mg capsule 250 mg PO Q8H #21 cap 02/03/21 02/03/21 Rx Allergies Allergy/AdvReac Type Severity Reaction Status Date / Time Latex, Natural Rubber Allergy Intermediate Hives / Verified 02/03/21 12:57 Red Face No Known Drug Allergies Allergy Unknown Unknown Verified 02/03/21 12:57 Vital Signs Vital Signs - 24 hr 02/03/21 16:15 02/03/21 16:16 02/03/21 16:30 Temperature Pulse Rate 111 H 111 H 108 H Blood Pressure 150/112 H 147/91 H 157/103 H Blood Pressure [Left Arm] 02/03/21 16:45 02/03/21 17:00 02/03/21 18:38 Temperature Pulse Rate 106 H 105 H 102 H Blood Pressure 147/102 H 153/98 H 156/104 H Blood Pressure [Left Arm] 156/104 H 02/03/21 19:15 02/03/21 20:11 02/03/21 20:15 Temperature 98.9 F Pulse Rate 99 102 H 102 H Blood Pressure 140/83 141/83 H Blood Pressure [Left Arm] 02/03/21 22:22 02/03/21 23:12 02/04/21 01:33 Temperature 98.0 F Pulse Rate 112 H 111 H 97 Blood Pressure 151/86 H 113/71 Blood Pressure [Left Arm] 151/86 H 02/04/21 05:25 02/04/21 07:49 02/04/21 07:50 Temperature 97.8 F Pulse Rate 103 H 108 H Blood Pressure 135/90 148/96 H Blood Pressure [Left Arm] 02/04/21 08:39 Temperature Pulse Rate 100 Blood Pressure 140/89 Blood Pressure [Left Arm] Exam Const: General: no acute distress Eyes: General: appearance normal, both eyes and all related structures Resp: Effort & Inspection: normal respiratory effort Cardio: Ra
== END 2021-02-04 09:25 | disposition home or self-care (01) ==
PROVIDERS: Admitting Provider Obstetrics & Gynecology; PCP Physician Assistant; Visit Provider Student in an Organized Health Care Education/Training Program
DX: O13.3 Gestational [pregnancy-induced] hypertension without significant proteinuria, third trimester (principal); Z3A.35 35 weeks gestation of pregnancy; O28.8 Other abnormal findings on antenatal screening of mother
CPT/HCPCS: 36415; 59025; 76815; 76819; 76820; 80053; 81001; 84550; 85025; A9270; G0378; G0379

== ENCOUNTER 2021-02-04 17:40 | Outpatient (CLI) | payer OTHER, SELFPAY ==
[2021-02-04 17:55] VITALS: BMI 34.3
[2021-02-04 19:00] LABS: Collection Time Urine 24 HOURS; Total Volume 24 Hour Urine 2800 ml
[2021-02-04 19:01] LABS: Patient Weight 197 Lbs
[2021-02-04 19:06] LABS: Specific Gravity Ur 1.015
[2021-02-04 19:14] LABS: Creatinine Clearance Urine 180.6 ml/min (75-125); Creatinine Urine 51.4 mg/dL; Total Protein Urine 24 Hr 336 mg/24hr (28-141); Total Protein Urine Random 12 mg/dL
== END 2021-02-04 17:41 | disposition home or self-care (01) ==
LOC: ANHOBOP 17:44
PROVIDERS: PCP Physician Assistant; Visit Provider Obstetrics & Gynecology
DX: O13.9 Gestational [pregnancy-induced] hypertension without significant proteinuria, unspecified trimester (principal); Z3A.00 Weeks of gestation of pregnancy not specified
CPT/HCPCS: 81050; 82575; 84156

== ENCOUNTER 2021-02-09 10:24 | Outpatient (RCR) | payer OTHER, SELFPAY ==
--- NOTE | ~2021-02-09 | US_ITS ---
EXAMINATION: US OB limited w BPP DATE: 02/09/2021 11:33 INDICATION: Preeclampsia, third trimester TECHNIQUE: Real-time pelvic ultrasound was performed. The interpreting radiologist was not present fo r the study. COMPARISON: 520 FINDINGS: There is a single living fetus in vertex presentation. The placenta is anterior. heart rate is 154 beats per minute (bpm). The amniotic fluid index is 6.7 cm which is low (normal range: 7.7 cm to 24.9 cm) Biophysical profile performed by the technologist: breathing (30 sec sustained breathing in 30 minutes): 2 out of 2 movement (3 gross body movements in 30 minutes): 2 out of 2 tone (one episode of hsgsrge-rwioqibwp-gvnolus limb movement): 2 out of 2 Amniotic fluid pocket (2 cm): 2 out of 2 Total score: 8 out of 8 IMPRESSION: 1. Single living fetus in vertex presentation. 2. Biophysical profile 8 out of 8. 3. Oligohydramnios. Reviewed, dictated and finalized at location A.
[2021-02-09 11:46] VITALS: BP 159/98; PULSE 105
== END 2021-02-15 11:47 | disposition home or self-care (01) ==
LOC: ANHOBOP 10:24
PROVIDERS: PCP Physician Assistant; Visit Provider Obstetrics & Gynecology
DX: O14.93 Unspecified pre-eclampsia, third trimester (principal); O41.03X0 Oligohydramnios, third trimester, not applicable or unspecified; Z3A.36 36 weeks gestation of pregnancy
CPT/HCPCS: 59025; 76815; 76819

== ENCOUNTER 2021-02-10 12:23 | Inpatient (IN) | payer OTHER, SELFPAY ==
[2021-02-10] VITALS (81 sets, daily range): BP systolic 88–166; BP diastolic 50–140; PULSE 61–183; TEMP 35.8–36.4; O2SAT 93–100; BMI 35.4
--- NOTE | 2021-02-10 13:11 | LDADM ---
This patient, Fabrice Burns, was admitted to Labor/Delivery/Recovery 110 on 02/10/21 at 12:23. Plans for labor, pain management and were discussed with patient. Patient/family oriented to hospital policies and general routines including ID bracelet, bed and alarms, visiting hours, pain management, procedures, bathroom and other care routines, personal items, smoking policy, room service/diet and guest tray routines, security routines, and visiting hours. Patient/Family are encouraged to report perceived risks to care and to ask questions if they do not understand what they are told or what they should do. See OBIX for further documentation.
[2021-02-10] MEDS: AMPICILLIN 2 GM/NS 100 ML 2 GM/100 ML BAG IVPB (14:04)
[2021-02-10] MEDS: OXYTOCIN 30 UNITS/NS 500 ML 30 UNITS/500 ML BAG IV CONT (14:05)
[2021-02-10] MEDS: LACTATED RINGERS 1,000 ML 125 ML IV CONT (14:05)
[2021-02-10 14:18] LABS: Basophils Percent Auto 0.2 % (0.2-1.2); Eosinophils Absolute Auto 0.1 K/mm3 (0-0.3); Eosinophils Percent Auto 0.7 % (0-4.4); Hematocrit 32.2 % (37.0-47.0); Hemoglobin 10.5 g/dL (12.0-15.0); Immature Granulocyte Absolute 0.06 K/mm3 (0.00-0.031); Immature Granulocyte Percent A 0.6 % (0-0.5); Lymphocytes Absolute Auto 2.15 K/mm3 (0.9-3.2); Lymphocytes Percent Auto 22.5 % (18.3-44.2); Mean Corpuscular HGB Conc 32.6 g/dl (32-36); Mean Corpuscular Hemoglobin 27.5 pg (26-34); Mean Corpuscular Volume 84.3 fl (80-100); Mean Platelet Volume 9.6 fl (7.4-10.4); Monocytes Absolute Auto 0.7 K/mm3 (0.1-0.6); Monocytes Percent Auto 7.2 % (2.6-8.5); Neutrophils Absolute Auto 6.6 K/mm3 (1.3-6.7); Neutrophils Percent Auto 68.8 % (45.5-73.1); Platelet Count Result 354 k/mm3 (150-375); Red Blood Count 3.82 M/mm3 (4.2-5.4); Red Cell Distribution Width 12.9 % (11.5-14.5); White Blood Count 9.5 K/mm3 (4.5-10.0)
[2021-02-10 14:27] LABS: Alanine Aminotransferase 12 U/L (4-35); Albumin Level 3.6 g/dL (3.5-5.1); Alkaline Phosphatase 81 U/L (38-126); Anion Gap 6 mmol/L (8-16); Aspartate Amino Transferase 26 U/L (14-36); Bilirubin,Total 0.1 mg/dL (0.2-1.3); Blood Urea Nitrogen 4 mg/dL (7-17); Calcium 9.5 mg/dL (8.4-10.2); Carbon Dioxide 25 mmol/L (22-30); Chloride 105 mmol/L (98-107); Estimated CRCL calculation 151 ml/min; Estimated Glomerular Filt Rate > 60; Glucose 91 mg/dL (65-105); Potassium 3.8 mmol/L (3.4-5.0); Sodium 136 mmol/L (137-145)
[2021-02-10 14:41] LABS: Uric Acid 5.7 mg/dL (2.5-7.5)
--- NOTE | 2021-02-10 15:57 | PM.IMHP ---
H&P: HPI History of Present Illness Date/Time: 02/10/21 15:57 Patient at 36 2/7 weeks admitted for pre-eclampsia. Blood pressures in office with diastolic in the 110. Repeat by me was 148/102. She has felt movement but decreased today. She had noticed some intermittent right upper quadrant tenderness today. Ultrasound yesterday impression was 6. She has been recommended for induction due to pre-eclampsia and increasing blood pressures and borderline low fluid. She had GBS in recent urine culture and will get antibiotics in labor. Recommend induction of labor. Discussed risk benefits of MIL and prematurity. She agrees to induction. Chief Complaint: Pre-eclampsia, mild. Review of Systems Review of Systems: All systems reviewed & are unremarkable except as noted in HPI and below Constitutional: Constitutional: Reports no additional constitutional complaints and Denies headache(s) Eyes: Eyes: Denies spots in vision ENT: Reports system reviewed and no additional complaints, except as documented and Denies headache(s) Cardiovascular: Cardiovascular: Denies chest pain and Denies dyspnea Respiratory: Respiratory: Denies dyspnea Gastrointestinal: Gastrointestinal: Reports no additional gastrointestinal complaints Genitourinary: Genitourinary: Reports amenorrhea Musculoskeletal: Musculoskeletal: Reports no additional musculoskeletal complaints Integumentary/Breasts: Skin/Breast: Denies breast mass and Denies rash Neurologic: Denies headache(s) Psychiatric: Psychiatric: Reports no additional psychiatric complaints [facility] Past Medical History Medical History Anxiety Asthma as a child History of pre-eclampsia History of vaginal delivery x1 Mild acid reflux Surgical History Surgical History [place] teeth removed Family History Family History Grandparent Diabetes mellitus Hypertension Cerebrovascular accident Father Hypertension Social History Social History Smoking status: Never smoker Second hand tobacco smoke exposure: No Alcohol intake: former Substance use: current Gender identity (if verbalized by the patient): Female Spiritual care concerns: No Meds Home Medications and Allergies Home Medications Medication Instructions Recorded Confirmed Type cetirizine 10 mg capsule 10 mg PO DAILY 07/06/20 02/10/21 History PNV 153-FA 400 mcg-om3 35 mg-dha 1 tablet PO DAILY 07/26/20 02/10/21 History 25 mg-epa 5 mg-fish oil chew tablet nifedipine 30 mg tablet,extended 30 mg PO DAILY #30 tablet 01/24/21 02/10/21 Rx release 24 hr Allergies Allergy/AdvReac Type Severity Reaction Status Date / Time Latex, Natural Rubber Allergy Intermediate Hives / Verified 02/10/21 11:40 Red Face No Known Drug Allergies Allergy Unknown Unknown Verified 02/10/21 11:40 Vital Signs Vital Signs - 24 hr 02/10/21 14:00 02/10/21 14:15 02/10/21 14:30 Pulse Rate 100 99 100 Blood Pressure 145/102 H 159/91 H 146/75 H 02/10/21 14:45 02/10/21 15:00 02/10/21 15:15 Pulse Rate 95 95 90 Blood Pressure 132/77 146/94 H 142/77 H 02/10/21 15:30 02/10/21 15:45 Pulse Rate 94 87 Blood Pressure 140/83 148/93 H Exam Const: General: no acute distress Eyes: General: appearance normal, both eyes and all related structures Resp: Effort & Inspection: normal respiratory effort Cardio: Rate: regular rate GI: Other: Gravid no fundal tenderness no right upper quadrant pain : Speculum Exam - Cervix: Other cervical findings present (cervix 2.5/75%/-2.) Skin: General skin exam: no rashes or lesions noted Neuro: Cognition (Neuro): normal cognition Extrem: General: normal to inspection Psych: Mental Status: mental status grossly normal H&P: Results Labs Labs: Short
--- NOTE | 2021-02-10 16:58 | WPDANESEPP ---
Anes - Eval Pre Procedure Procedure: LAbor epidural Date/Time: 02/10/21 16:58 Surgeon: Anibal Preop Diagnosis: Abd pain with contractions Pre Op Diagnosis: iol Patient Data Age: 30 Gender: F Height: 5 ft 3.5 in Weight: 92 kg Last Vital Signs Pulse 95 02/10/21 16:45 BP 139/84 02/10/21 16:45 Allergies Allergy/AdvReac Type Severity Reaction Status Date / Time Latex, Natural Rubber Allergy Intermediate Hives / Verified 02/10/21 11:40 Red Face No Known Drug Allergies Allergy Unknown Unknown Verified 02/10/21 11:40 Home Medications Medication Instructions Recorded Confirmed Type cetirizine 10 mg capsule 10 mg PO DAILY 07/06/20 02/03/21 History PNV 153-FA 400 mcg-om3 35 mg-dha 1 tablet PO DAILY 07/26/20 02/03/21 History 25 mg-epa 5 mg-fish oil chew tablet nifedipine 30 mg tablet,extended 30 mg PO DAILY #30 tablet 01/24/21 02/03/21 Rx release 24 hr Laboratory Tests 02/10/21 02/10/21 02/10/21 14:06 14:06 14:06 WBC 9.5 K/mm3 K/mm3 (4.5-10.0) RBC 3.82 M/mm3 L M/mm3 (4.2-5.4) Hgb 10.5 g/dL L g/dL (12.0-15.0) Hct 32.2 % L % (37.0-47.0) MCV 84.3 fl fl (80-100) MCH 27.5 pg pg (26-34) MCHC 32.6 g/dl g/dl (32-36) RDW 12.9 % % (11.5-14.5) Plt Count 354 k/mm3 k/mm3 (150-375) MPV 9.6 fl fl (7.4-10.4) Immature Gran % (Auto) 0.6 % H % (0-0.5) Neut % (Auto) 68.8 % % (45.5-73.1) Lymph % (Auto) 22.5 % % (18.3-44.2) [place] % (Auto) 7.2 % % (2.6-8.5) Eos % (Auto) 0.7 % % (0-4.4) Baso % (Auto) 0.2 % % (0.2-1.2) Lymph # (Auto) 2.15 K/mm3 K/mm3 (0.9-3.2) [place] # (Auto) 0.7 K/mm3 H K/mm3 (0.1-0.6) Eos # (Auto) 0.1 K/mm3 K/mm3 (0-0.3) Baso # (Auto) 0.0 K/mm3 K/mm3 (0.0-0.1) Abs Immat Gran (auto) 0.06 K/mm3 H K/mm3 (0.00-0.031) Absolute Neuts (auto) 6.6 K/mm3 K/mm3 (1.3-6.7) Absolute Nucleated RBC 0.0 K/mm3 K/mm3 (0.0-0.012) Nucleated RBC % 0.0 % % (0.0-0.2) Sodium Potassium Chloride Carbon Dioxide Anion Gap BUN Creatinine Estim Creat Clear Calc Estimated GFR Glucose Uric Acid 5.7 mg/dL mg/dL (2.5-7.5) Calcium Total Bilirubin AST ALT Alkaline Phosphatase Total Protein Albumin RPR Pending Blood Type Antibody Screen 02/10/21 02/10/21 14:06 14:06 WBC RBC Hgb Hct MCV MCH MCHC RDW Plt Count MPV Immature Gran % (Auto) Neut % (Auto) Lymph % (Auto) [place] % (Auto) Eos % (Auto) Baso % (Auto) Lymph # (Auto) [place] # (Auto) Eos # (Auto) Baso # (Auto) Abs Immat Gran (auto) Absolute Neuts (auto) Absolute Nucleated RBC Nucleated RBC % Sodium 136 mmol/L L mmol/L (137-145) Potassium 3.8 mmol/L mmol/L (3.4-5.0) Chloride 105 mmol/L mmol/L (98-107) Carbon Dioxide 25 mmol/L mmol/L (22-30) Anion Gap 6 mmol/L L mmol/L (8-16) BUN 4 mg/dL L mg/dL (7-17) Creatinine 0.50 mg/dL L mg/dL (0.7-1.0) Estim Creat Clear Calc 151 ml/min ml/min Estimated GFR > 60 (59 - ) Glucose 91 mg/dL mg/dL (65-105) Uric Acid Calcium 9.5 mg/dL mg/dL (8.4-10.2) Total Bilirubin 0.1 mg/dL L mg/dL (0.2-1.3) AST 26 U/L U/L (14-36) ALT 12 U/L U/L (4-35) Alkaline Phosphatase 81 U/L U/L (38-126) Total Protein 7.0 g/dL g/dL (6.3-8.2) Albumin 3.6 g/dL g/dL
[2021-02-10] MEDS: AMPICILLIN 1 GM/NS 50 ML 1 GM/50 ML BAG IVPB ×2 (17:57→23:39)
--- NOTE | 2021-02-10 19:03 | PM.OBPNVD ---
OB - PN: Subj Subjective Date/time seen: 02/10/21 19:03 Cat 2, irreg ctx, cervix 2.5/50/-2, AROM 1858 clear. Cont pit. OB - PN: Obj Data Labs CBC & Chem 7: 02/10/21 14:06 02/10/21 14:06 Labs: Laboratory Results - last 24 hr 02/10/21 02/10/21 02/10/21 14:06 14:06 14:06 WBC 9.5 RBC 3.82 L Hgb 10.5 L Hct 32.2 L MCV 84.3 MCH 27.5 MCHC 32.6 RDW 12.9 Plt Count 354 MPV 9.6 Immature Gran % (Auto) 0.6 H Neut % (Auto) 68.8 Lymph % (Auto) 22.5 Bland % (Auto) 7.2 Eos % (Auto) 0.7 Baso % (Auto) 0.2 Lymph # (Auto) 2.15 Bland # (Auto) 0.7 H Eos # (Auto) 0.1 Baso # (Auto) 0.0 Abs Immat Gran (auto) 0.06 H Absolute Neuts (auto) 6.6 Absolute Nucleated RBC 0.0 Nucleated RBC % 0.0 Sodium Potassium Chloride Carbon Dioxide Anion Gap BUN Creatinine Estim Creat Clear Calc Estimated GFR Glucose Uric Acid 5.7 Calcium Total Bilirubin AST ALT Alkaline Phosphatase Total Protein Albumin Blood Type O Positive Antibody Screen Negative 02/10/21 14:06 WBC RBC Hgb Hct MCV MCH MCHC RDW Plt Count MPV Immature Gran % (Auto) Neut % (Auto) Lymph % (Auto) Bland % (Auto) Eos % (Auto) Baso % (Auto) Lymph # (Auto) Bland # (Auto) Eos # (Auto) Baso # (Auto) Abs Immat Gran (auto) Absolute Neuts (auto) Absolute Nucleated RBC Nucleated RBC % Sodium 136 L Potassium 3.8 Chloride 105 Carbon Dioxide 25 Anion Gap 6 L BUN 4 L Creatinine 0.50 L Estim Creat Clear Calc 151 Estimated GFR > 60 Glucose 91 Uric Acid Calcium 9.5 Total Bilirubin 0.1 L AST 26 ALT 12 Alkaline Phosphatase 81 Total Protein 7.0 Albumin 3.6 Blood Type Antibody Screen OB - PN A/P Time Spent With Patient Time: Total time spent is greater than 50% in coordination of care (as documented) at patient's floor/unit and/or counseling patient:
[2021-02-10 19:17] LABS: HIV 1/2 Ab P24 Ag Result Negative (Negative)
[2021-02-10] MEDS: NIFEdipine 30 MG TAB.ER.24 PO (23:40)
[2021-02-11] VITALS (66 sets, daily range): BP systolic 102–160; BP diastolic 63–103; PULSE 80–116; RESP 16–18; TEMP 36.3–37; O2SAT 92–100
[2021-02-11] MEDS: FAMOTIDINE 20 MG/2 ML VIAL IV PUSH (00:10)
--- NOTE | 2021-02-11 04:12 | PM.OBPRVD ---
OB - Delivery Note Procedure Delivery date: 02/11/21 Procedure: Spontaneous vaginal delivery events: Pre-Eclampsia Intrapartal events: None Induction method: AROM and per pitocin protocol Delivery augmentation: rupture of membranes Delivery monitor: external FHT Route of delivery: Laceration Description: None Quantitative Blood Loss (ml): 150 Anesthesia type: Epidural Disposition: floor Narrative: Patient admitted to L and D on 02/12 after having increased bp in office of 150/110. PNC significant for mild preeclampsia without severe features. The diastolic blood pressure on L and D was in 90s and low 100s mostly. Pre- e labs normal. She was recommended for medical induction of labor for increasing blood pressures. She denied severe headache, or scotomata. She did complain of a day intermittent right upper quadrant pain. Her LFTs normal. She also has noticed decreased movement. Last DAVE 6. Cervix on admission 2.5/70/-2. PNC also significant for recent urine culture with GBS. She was started on Ampicillin IV. She had AROM clear at 1858 after her second dose of Ampicillin. She progressed into active labor. She did not have sustained severe range blood pressures or symptoms during labor. She received epidural. She dilated to complete. She pushed twice and delivered a male over intact perineum. Infant was vigorously crying and placed on maternal abdomen. Delayed cord clamping until a pulsatile which was after 30sec. Cord then clamped and cut. Cord gases and cord blood obtained. The placenta delivered spontaneous and intact. Will send to path due to pre-eclampsia. She tolerated procedure well. Baby Date of : 02/11/21 Time of : 03:55 Weeks of gestation at delivery: 36 Infant gender: Male Weight (pounds): 6 Weight (ounces): 1 presentation: vertex position: Right Occiput Anterior Placenta delivery description: Spontaneous cord vessel description: Delayed Cord Clamping score one minute: 9 score five minutes: 9
[2021-02-11] MEDS: OXYTOCIN 30 UNITS/NS 500 ML 30 UNITS/500 ML BAG 125 UNITS IV CONT (05:04)
[2021-02-11] MEDS: IBUPROFEN 600 MG TABLET PO ×2 (05:59→13:03)
[2021-02-11] MEDS: BENZOCAINE 20% AER SPR (*SP) 56 GM CAN 1 SPRAY TOPICAL (06:00)
[2021-02-11] MEDS: WITCH HAZEL 40 PADS 1 PAD TOPICAL (06:00)
[2021-02-11 06:46] LABS: Rapid Plasma Reagin Non-Reactive (NonReactive)
[2021-02-11] MEDS: ACETAMINOPHEN 325 MG TABLET 650 MG PO ×2 (07:44→17:26)
--- NOTE | 2021-02-11 08:09 | PC.NURSE ---
Dr. Barnett informed of pt's initial BP 160/101 that was with the regular size cuff and pt c/o cramping she rates as a 6 out of 10. Next BP was 155/92. After voiding to decrease cramping, BP 141/89. Pt has no headache, visual disturbance, epigastric/RUQ pain. No edema. Normal reflexes. Also informed is in level II nursery. OK to monitor BP's q4 hrs.
--- NOTE | 2021-02-11 09:45 | PC.NURSE ---
To nursery per wheelchair to see infant.
[2021-02-11] MEDS: MULTIVIT/MIN/PREN/FOL AC/IRON TABLET 1 TAB PO (11:07)
--- NOTE | 2021-02-11 17:50 | PC.NURSE ---
Dr. York ([facility]) in to talk to pt and regarding infant and preference to transfer infant. Questions answered and pt and in agreement.
--- NOTE | 2021-02-11 18:05 | PC.NURSE ---
Transferred to room 111 ambulatory with personal belongings. in attendance.
[2021-02-11] MEDS: NIFEdipine 30 MG TAB.ER.24 PO (20:04)
[2021-02-12 00:32] VITALS: BP 149/84; PULSE 100
[2021-02-12] MEDS: IBUPROFEN 600 MG TABLET PO (00:35)
[2021-02-12] MEDS: ACETAMINOPHEN 325 MG TABLET 650 MG PO (00:36)
[2021-02-12 00:42] VITALS: BP 149/84; PULSE 100; RESP 16
[2021-02-12 04:02] VITALS: BP 150/93; PULSE 95
[2021-02-12 05:33] LABS: Hematocrit 31.9 % (37.0-47.0); Hemoglobin 10.3 g/dL (12.0-15.0)
[2021-02-12 07:20] VITALS: BP 134/88; PULSE 79
[2021-02-12 07:32] LABS: Hematocrit 32.5 % (37.0-47.0); Hemoglobin 10.6 g/dL (12.0-15.0); Mean Corpuscular HGB Conc 32.6 g/dl (32-36); Mean Corpuscular Hemoglobin 28.1 pg (26-34); Mean Corpuscular Volume 86.2 fl (80-100); Mean Platelet Volume 8.9 fl (7.4-10.4); Platelet Count Result 314 k/mm3 (150-375); Red Blood Count 3.77 M/mm3 (4.2-5.4); Red Cell Distribution Width 13.2 % (11.5-14.5); White Blood Count 12.1 K/mm3 (4.5-10.0)
[2021-02-12 07:43] LABS: Alanine Aminotransferase 14 U/L (4-35); Albumin Level 3.2 g/dL (3.5-5.1); Alkaline Phosphatase 67 U/L (38-126); Anion Gap 5 mmol/L (8-16); Aspartate Amino Transferase 38 U/L (14-36); Bilirubin,Total 0.2 mg/dL (0.2-1.3); Blood Urea Nitrogen 4 mg/dL (7-17); Carbon Dioxide 27 mmol/L (22-30); Chloride 106 mmol/L (98-107); Estimated CRCL calculation 151 ml/min; Estimated Glomerular Filt Rate > 60; Glucose 81 mg/dL (65-105); Sodium 138 mmol/L (137-145); Uric Acid 5.3 mg/dL (2.5-7.5)
--- NOTE | 2021-02-12 08:37 | PM.OBPNVD ---
OB - PN: Subj Subjective Date/time seen: 02/12/21 08:37 She denies severe headache, scotomata or RUQ pain, no midepigastric pain. Baby transferred yesterday and stable. Patient comments: pain well controlled, tolerating diet and other (Decreasing lochia.) OB - PN: Obj Data Labs CBC & Chem 7: 02/12/21 07:22 02/12/21 07:22 Labs: Laboratory Results - last 24 hr 02/12/21 02/12/21 02/12/21 05:08 07:22 07:22 WBC 12.1 H RBC 3.77 L Hgb 10.3 L 10.6 L Hct 31.9 L 32.5 L MCV 86.2 MCH 28.1 MCHC 32.6 RDW 13.2 Plt Count 314 MPV 8.9 Sodium 138 Potassium 4.0 Chloride 106 Carbon Dioxide 27 Anion Gap 5 L BUN 4 L Creatinine 0.50 L Estim Creat Clear Calc 151 Estimated GFR > 60 Glucose 81 Uric Acid 5.3 Calcium 9.0 Total Bilirubin 0.2 AST 38 H ALT 14 Alkaline Phosphatase 67 Total Protein 6.0 L Albumin 3.2 L OB - PN A/P Plan day: 1 Plan: routine care Comments: Patient doing well. No signs or symptoms of severe pre-e. Minimally increased LFT. BP stable not severe range. Will allow discharge. She will take blood pressures, is aware of criteria to call and symptoms to call for. Time Spent With Patient Time: Total time spent is greater than 50% in coordination of care (as documented) at patient's floor/unit and/or counseling patient: Exam Const: General: no acute distress, alert and awake Eyes: General: appearance normal, both eyes and all related structures Resp: Effort & Inspection: normal respiratory effort GI: Other: fundus -4umb firm nontender no RUQ pain Neuro: Other: DTRs 2+ Psych: Affect: normal affect Other: Abd: fundus firm below umbilicus, nontender Perineum: healing Ext: nontender
[2021-02-12] MEDS: TETANUS,DIPHTHERIA,AC PERTUSSIS ADULT (0.5 ML) BOOSTRIX IM (09:49)
--- NOTE | 2021-03-16 01:22 | P.DS_ITS ---
DS: Admitting Diagnosis Admitting Diagnosis Admitting Diagnosis: Gestational hypertension DS: Discharge Diagnosis Discharge Diagnosis (1) Delivery normal: Code(s): O80 - Encounter for full-term uncomplicated delivery Status: Acute OB - DS: Summary Hospital Course Hospital Course: Patient was admitted for medical induction of labor with Pitocin. She had assisted rupture of membranes. She progressed to active labor and had a normal vaginal delivery. She did not have any severe symptoms. Her blood pressures after delivery did not meet severe range. She was continued on Labetolol. The baby was transferred due to respiratory distress. On day 1. She was doing well. No symptoms of severe blood pressures. She requested discharge to be with the baby. Her pain was controlled. She was discharged home on the Labetolol and vitmain.s and hypertension precautions. OB Procedures : NST, PIH Mgmt and Ultrasound OB Procedures Intrapartum: Spontaneous Vag Delivery OB Procedures: : None Peripartum Data Infant Delivery Method: Natural Vaginal Procedures: Spontaneous vaginal delivery complications: none Status at Discharge Functional status at discharge: independent ambulation Time Spent with Patient Time attestation: Total time spent providing and/or coordinating discharge services: Exam 2 Const: General: cooperative Orientation/consciousness: oriented to person, oriented to place and oriented to time HENMT: General nose exam: Normal external nose present Eyes: General: appearance normal, both eyes and all related structures Resp: Effort & Inspection: normal respiratory effort GI: Inspection: normal to inspection Skin: General skin exam: normal color Neuro: General: oriented to person, oriented to place and oriented to time Extrem: General: normal to inspection and no calf tenderness Psych: Appearance: grossly normal Mental Status: mental status grossly normal DS: Data Data Completed and Pending Completed studies during hospitalization: Pending at discharge 02/11/21 03:58 Surgical [PTH] Routine Discharge Plan Discharge Attending physician on discharge: Gray aBrnett Consulting providers: Dharmesh Walker Discharging Clinician: Gray Barnett Anticipated Discharge Date/Time: 02/12/21 08:42 Patient Disposition: Home, Self-Care Activity: no straining, as tolerated and other - see discharge instructions Diet: regular Discharge Instructions: Pelvic rest for 4-6 weeks. May take over the counter Ibuprofen or Tylenol for pain. Call if saturating more than a pad an hour, leg redness, pain and swelling, temperature>100.4. No strenuous activity. Call for severe headache not relieved with medication, scotomata or persistant right upper quadrant pain. Stand Alone Forms: General Discharge Information Follow-up/Referrals: Gray Barnett MD [Physician] - 1 Week (Call for appointment) Discharge Medications: New ibuprofen 600 mg Tablet 600 mg PO Q6H PRN (Reason: Cramping) RF: 0 KPN Tablet 1 tab PO DAILY RF: 0 Continued Zyrtec 10 mg capsule 10 mg PO DAILY RF: 0 Date of admission: 02/10/21 12:23 Primary Care Provider: Corrina,Megan Admitting Provider: Gray Barnett Attending physician on admission: Gray Barnett Condition: Stable
== END 2021-02-12 09:59 | disposition home or self-care (01) | DRG 807 ==
LOC: ANHLDR 12:27 → ANHOBPP 02-11 16:59
PROVIDERS: Admitting Provider Obstetrics & Gynecology; PCP Physician Assistant; Visit Provider Obstetrics & Gynecology
DX: O14.04 Mild to moderate pre-eclampsia, complicating childbirth (principal); Z37.0 Single live birth; O99.824 Streptococcus B carrier state complicating childbirth; O76 Abnormality in fetal heart rate and rhythm complicating labor and delivery; Z3A.36 36 weeks gestation of pregnancy
CPT/HCPCS: 36415; 80053; 84550; 85014; 85018; 85025; 85027; 86592; 86703; 86850; 86900; 86901; 88307; 90715; A9270; G0432; J0290; J2590; J2795; J7120

== ENCOUNTER → 2022-08-28 11:01 | Outpatient (CLI) | payer OTHER, SELFPAY ==
--- NOTE | ~2022-08-28 | US_ITS ---
Pelvic ultrasound. Clinical History: Pelvic pain Technique: Realtime transabdominal and transvaginal scanning of the pelvis was performed. Findings: The uterus is anteverted. The endometrial stripe has a thickness of 3 mm. IUD is in place. No focal mass is identified. The right ovary measures 3.7 x 2.3 x 3.2 cm. No significant right ovarian or adnexal mass is seen. The left ovary measures 3.6 x 2.3 x 4.0 cm. No significant left ovarian or adnexal mass is seen. There is no evidence of free fluid in the cul de sac. Impression: IUD in place, otherwise unremarkable pelvic ultrasound. Reviewed, dictated and finalized at location . [facility] [employer] Impression: IUD in place, otherwise unremarkable pelvic ultrasound.
== END ==
PROVIDERS: PCP Physician Assistant; Visit Provider Obstetrics & Gynecology
DX: R10.2 Pelvic and perineal pain (principal); Z97.5 Presence of (intrauterine) contraceptive device
CPT/HCPCS: 76830; 76856